=== PATIENT | female | born 1980 | race Caucasian/White ===

== ENCOUNTER 2017-01-03 22:44 | Inpatient (IN) | payer MEDICAID ==
[~2017-01-03] VITALS: Ht 160 cm; Wt 61.3 kg
[2017-01-03 22:51] VITALS: Ht 160 cm; Wt 61.3 kg
--- NOTE | 2017-01-03 23:35 | RADRPT ---
PROCEDURE: US OB biophysical profile. CLINICAL INDICATION: labor TECHNIQUE: Multiple sonographic images of the pelvis were obtained. The images were reviewed on a PACS workstation. COMPARISON: No pertinent prior examinations were submitted for comparison. FINDINGS: There is a single viable intrauterine gestation. Cardiac activity is present with 131 beats per min [place]. There is a vertex presentation. The placenta is fundal, grade II in appearance. There is a normal amount of amniotic fluid with an NORA = 11.9 cm. Biophysical profile: movement 2/2 tone 2/2. breathing 2/2 NORA 2/2 Total 10/16 IMPRESSION: Normal biophysical profile. RPTAT: HIKT . .Bruce Hinojosa MD, MD Date Time Electronically viewed and signed by .Bruce Hinojosa MD, MD on 01/03/2017 23:35 .T/
--- NOTE | 2017-01-03 23:35 | RADRPT ---
PROCEDURE: US OB biophysical profile. CLINICAL INDICATION: labor TECHNIQUE: Multiple sonographic images of the pelvis were obtained. The images were reviewed on a PACS workstation. COMPARISON: No pertinent prior examinations were submitted for comparison. FINDINGS: There is a single viable intrauterine gestation. Cardiac activity is present with 131 beats per min [place]. There is a vertex presentation. The placenta is fundal, grade II in appearance. There is a normal amount of amniotic fluid with an NORA = 11.9 cm. Biophysical profile: movement 2/2 tone 2/2. breathing 2/2 NORA 2/2 Total 10/16 IMPRESSION: Normal biophysical profile. RPTAT: HIKT . .Bruce Hinojosa MD, MD Date Time Electronically viewed and signed by .Bruce Hinojosa MD, MD on 01/03/2017 23:35 .T/
--- NOTE | 2017-01-03 23:35 | RADRPT ---
PROCEDURE: US OB biophysical profile. CLINICAL INDICATION: labor TECHNIQUE: Multiple sonographic images of the pelvis were obtained. The images were reviewed on a PACS workstation. COMPARISON: No pertinent prior examinations were submitted for comparison. FINDINGS: There is a single viable intrauterine gestation. Cardiac activity is present with 131 beats per min [place]. There is a vertex presentation. The placenta is fundal, grade II in appearance. There is a normal amount of amniotic fluid with an NORA = 11.9 cm. Biophysical profile: movement 2/2 tone 2/2. breathing 2/2 NORA 2/2 Total 10/16 IMPRESSION: Normal biophysical profile. RPTAT: HIKT . .Bruce Hinojosa MD, MD Date Time Electronically viewed and signed by .Bruce Hinojosa MD, MD on 01/03/2017 23:35 .T/
--- NOTE | 2017-01-03 23:36 | RADRPT ---
PROCEDURE: Obstetrical ultrasound greater than 14 weeks CLINICAL INDICATION: labor. Estimated weight TECHNIQUE: Real time sonographic imaging of the gravid uterus is performed transabdominally and mu ltiple static brock scale and Doppler images are submitted for review as are measurements. The image s are reviewed on the PACS. COMPARISON: No relevant exams are available FINDINGS: There is a single living intrauterine gestation in cephalic presentation. The heart beat is estimated at 150 bpm. The measurements are as follows: BPD:9.01 cm HC:33.05 cm AC:34.71 cm FL:7.20 cm Estimated gestational age is 37 weeks 3 days. The estimated date of delivery is 01/21/2017. The estimated weight is 3327 grams. Placenta is fundal and grade2. There is no evidence of placenta previa or abruption. RPTAT:HJJR IMPRESSION: 1. Single viable intrauterine gestation in cephalic presentation estimated at 37 weeks 3 days with t he estimated date of delivery 01/21/2017. 2. Estimated weight 3327 grams, the 53rd percentile. Physician Daphney Date Time Electronically viewed and signed by Physician Daphney on 01/03/2017 23:36 /
[2017-01-04] MEDS ORDERED: METHYLERGONOVINE 0.2 MG INJ IM PRN (02:00)
[2017-01-04] MEDS ORDERED: BUTORPHANOL 2 MG INJ IV PRN (02:00)
[2017-01-04] MEDS ORDERED: LIDOCAINE 1% (MPF) 30 ML INJ INJ PRN (02:00)
[2017-01-04] MEDS ORDERED: OXYTOCIN 30 UNITS/LR 500 ML IV SCH ×3 (02:00→08:00)
[2017-01-04] MEDS ORDERED: OXYTOCIN 30 UNITS/LR 500 ML IV PRN (02:00)
[2017-01-04] MEDS ORDERED: MISOPROSTOL 200 MCG TAB PR PRN (02:00)
[2017-01-04] MEDS ORDERED: IBUPROFEN 600 MG TAB PO PRN (02:00)
[2017-01-04] MEDS ORDERED: MINERAL OIL LIGHT 10 ML VIAL TOP PRN (02:00)
[2017-01-04] MEDS ORDERED: CARBOPROST 250 MCG INJ IM PRN (02:00)
[2017-01-04] MEDS: LACTATED RINGER'S 1,000 ML IV SCH ×3 (02:23→20:18)
[2017-01-04 03:21] VITALS: BP 121/86; PULSE 118; RESP 18
--- NOTE | 2017-01-04 03:21 | TRIAGE ---
OB Triage Datetime Report Generated by CPN: 01/04/2017 03:20 Datetime: 01/04/2017 23:00 Stage of : OB Triage Datetime: 01/04/2017 03:00 Stage of : OB Triage Labor Evaluation Frequency: 2-6 Monitor Mode: External Duration (sec)2399: 70-120 Quality: Mild Pattern: Normal: <= 5 Contractions in 10 Minutes Resting Tone [place]: Relaxed Heart Rate FHR Baseline Rate: 140 Monitor Mode: External US Variability: Moderate 6-25 bpm Accelerations: 15X15 Decelerations: None Category: Category I Pain Assessment Pain Scale: 3 Pain Presence: Intermittent Pain Type: Cramping Pain Location: Abdomen Pain Goal: 3 Pain Relief Measures: Comfort Measures Datetime: 01/04/2017 02:20 Assessment Type: Ongoing Assessment Datetime: 01/04/2017 02:00 Stage of : OB Triage Labor Evaluation Frequency: 3-10 Monitor Mode: External Duration (sec)2399: 70-120 Quality: Mild Pattern: Normal: <= 5 Contractions in 10 Minutes Resting Tone [place]: Relaxed Heart Rate FHR Baseline Rate: 140 Monitor Mode: External US Variability: Moderate 6-25 bpm Accelerations: 15X15 Decelerations: None Category: Category I Pain Assessment Pain Scale: 3 Pain Presence: Intermittent Pain Type: Cramping Pain Location: Abdomen Pain Goal: 3 Pain Relief Measures: Comfort Measures Datetime: 01/04/2017 01:00 Stage of : OB Triage Labor Evaluation Frequency: IRREG Monitor Mode: External Duration (sec)2399: 70-120 Quality: Mild Pattern: Normal: <= 5 Contractions in 10 Minutes Resting Tone [place]: Relaxed Heart Rate FHR Baseline Rate: 140 Monitor Mode: External US Variability: Moderate 6-25 bpm Accelerations: 15X15 Decelerations: Variable Category: Category II Datetime: 01/04/2017 00:00 Stage of : OB Triage Labor Evaluation Frequency: [place]CCASS Monitor Mode: External Duration (sec)2399: 80 Quality: Mild Pattern: Normal: <= 5 Contractions in 10 Minutes Resting Tone [place]: Relaxed Heart Rate FHR Baseline Rate: 140 Monitor Mode: External US Variability: Moderate 6-25 bpm Accelerations: 15X15 Decelerations: Variable Category: Category II Datetime: 01/03/2017 23:28 Vaginal Exam Dilatation (cms): 0.0 Effacement (%): 0 Station: -3 Exam By: ALESSANDRO Cervix, Position: Posterior Datetime: 01/03/2017 23:07 Time of Arrival: 01/03/2017 22:32 EGA: 38.2 Arrived By: Wheelchair Arrived From: Home Chief Complaint: WENT TO CLINIC TODAY, HAS PAPERS TO DO PIH , BPP AND EFW, ADDITIONAL COMPLAINS OD ABD. TIGTHENING Movement: Present Contractions: Occasional Rupture of Membranes: Denies Vaginal Discharge: Denies Recent Sexual Intercouse: Denies Time Provider Notified: 01/03/2017 23:25 Provider Notified: JAMES Initial Plan: VS, EFM, PIH LABS, EFW/BPP Datetime: 01/03/2017 23:00 Stage of : OB Triage Assessment Type: Triage Maternal Assessment Level of Consciousness: Fully Conscious DTR's/Clonus: DTRs 2+; No Clonus Headache: Denies Blurred Vision: No Respiratory Effort: Unlabored; Regular Rhythm; Equal Expansion Nausea/Vomiting: Denies RUQ Epigastric Pain: Denies Lower Extremities Edema: None Upper Extremities Edema: None Facial Edema: None Temperature Route: Oral Fall Risk Assessment History of Falling: (0) No Secondary Diagnosis: (0) No Ambulatory Aid: (0) Bedrest/Nurse Assist IV Therapy: (0) No Gait: (0) Normal/Bedrest/Immobile Mental Status: (0) Oriented to Own Ability Fall Score: 0 Fall Risk Score Definition: No Risk: No action required
--- NOTE | 2017-01-04 07:53 | HP ---
Date/Time of Note Date/Time of Note DATE: 01/04/17 TIME: 07:38 OB - History Hx of Present Free Text/Dictation 36y.o at 38w3d ,sent from clinic for elavated B.P for further evaluation.. B.P was checked in multiple occasions which is in normal range ,but urine protein ++ and EFM revealed x2 mild variable decelerations and uterine contractions q4- 7min apart admitted for augmentation of labor . VE closed /long /-3 Chief Complaint: monitor for high blood pressure Estimated Due Date: Jan 15, 2017 : 5 Para: 4 Spontaneous : 0 Therapeutic : 0 Care: Other Ultrasounds: Other Obstetrical Complications: None Medical Complications: None Past Family/Social History * Past Medical, Surgical, Family and Obstetric Histories reviewed from chart. Blood Type: O+ GBS Status: Negative HBsAG: Negative OB Admission Exam Vital Signs Vital Signs Vital Signs Date Time Temp Pulse Resp B/P Pulse Ox O2 Delivery O2 Flow Rate FiO2 01/04/17 03:21 98.2 118 18 121/86 Room Air Physical Exam HEENT: WNL Heart: Rhythm Normal Lungs: Clear, Equal Abdomen: WNL Extremities: Normal Reflexes: Normal Cervical Dilatation: None Effacement: 0% Station: -3 Membranes: Intact Amniotic Fluid: Unevaluable Heart Rate: 130's Accelerations: Accelerations Present Decelerations: No Decelerations Varibility: Moderate Contractions on Admission: 6-10 Minutes Apart Intensity: Mild Last 72 hours Lab Results CBC & BMP 01/03/17 23:37 Liver Function Test 01/03/17 23:37 Alanine Aminotransferase (ALT/SGPT) 32 Albumin 3.5 Alkaline Phosphatase 295 H Aspartate Amino Transf (AST/SGOT) 24 Direct Bilirubin 0.00 Total Protein 7.2 OB Assessment/Plan Other Assessment: IUP 38w3d R/O PIH in latent phase Induction Method: per Pitocin Protocol ASHLEE RAMIREZ MD Jan 04, 2017 07:49
[2017-01-04] MEDS ORDERED: LACTATED RINGER'S 1,000 ML IV PRN (09:00)
[2017-01-04] MEDS ORDERED: MAGNESIUM SULFATE 4 GM/100 ML 100 ML IV SCH (09:30)
[2017-01-04] MEDS ORDERED: DINOPROSTONE 10 MG VAG SUPP VAG ONE (09:30)
[2017-01-04] MEDS: MAGNESIUM SULFATE 20 GM/500 ML 500 ML IV SCH ×2 (09:59→20:19)
[2017-01-04] MEDS ORDERED: FENTAnyl 2MCG/ML-ROPIV 0.2% 100 ML ONE (13:07)
[2017-01-04] MEDS ORDERED: NALOXONE (0.4 MG/ML) INJ IV PRN (14:30)
[2017-01-04] MEDS: FENTAnyl 2MCG/ML-ROPIV 0.2% 100 ML BAG EPI SCH (21:22)
[2017-01-04] MEDS ORDERED: DEXTROSE 5%-LR 1,000 ML IV SCH (23:30)
[2017-01-05] VITALS (9 sets, daily range): BP systolic 111–139; BP diastolic 63–87; PULSE 62–75; RESP 17–19
[2017-01-05] MEDS: FENTAnyl 2MCG/ML-ROPIV 0.2% 100 ML BAG EPI SCH (05:16)
[2017-01-05] MEDS: MAGNESIUM SULFATE 20 GM/500 ML 500 ML IV SCH (06:17)
--- NOTE | 2017-01-05 11:01 | LDN ---
Date/Time of Note Date/Time of Note DATE: 01/05/17 TIME: 10:56 Delivery Summary Normal spontaneous vaginal delivery of a baby girl from OA position shoulders delivered without difficulty rest of the baby's body followed cord clamped after stopped pulsation, placenta spontaneous expulsion inspected complete, estimated blood loss 300 to 350 cc, patient sustained a small first-degree perineal repaired 3-0 chromic Weeks of Gestation 38 weeks 3 days Placenta Delivered: Spontaneously Meconium: none Episiotomy: No Perineal laceration: 1 Laceration repair: First-degree perineal laceration repaired with 3-0 chromic catgut Anesthesia type: Epidural Estimated blood loss: 350 Sponge & Needle done & correct: Yes All needle counts correct: Yes Any foreign bodies felt in the: No Problems: Infant Delivery Information Sex Sex: female Apgars 1 Minute: 9 5 Minute: 9 Suctioning Nose & mouth suctioned at zia: Yes Umbilical Cord Umbilical cord with: 3 Vessels Cord presentations: no nuchal cord Cord Blood was obtained: Yes YESSY MACHADO MD Jan 05, 2017 11:01
[2017-01-05] MEDS: LACTATED RINGER'S 1,000 ML IV* SCH ×2 (14:17→22:17)
[2017-01-05] MEDS ORDERED: MISOPROSTOL 200 MCG TAB PR PRN (14:30)
[2017-01-05] MEDS ORDERED: HYDROCODONE/APAP (5/325) TAB PO PRN ×2 (14:30)
[2017-01-05] MEDS ORDERED: ACETAMINOPHEN 325 MG TAB PO PRN (14:30)
[2017-01-05] MEDS ORDERED: CARBOPROST 250 MCG INJ IM PRN (14:30)
[2017-01-05] MEDS ORDERED: ONDANSETRON 4 MG INJ IV PRN (14:30)
[2017-01-05] MEDS ORDERED: BENZOCAINE 20% 56 ML SPRAY TOP PRN (14:30)
[2017-01-05] MEDS ORDERED: LANOLIN 7 GM TUBE TOP PRN (14:30)
[2017-01-05] MEDS ORDERED: METHYLERGONOVINE 0.2 MG INJ IM PRN (14:30)
[2017-01-05] MEDS ORDERED: WITCH HAZEL/GLYCERIN PAD PR PRN (14:30)
[2017-01-05] MEDS ORDERED: OXYCODONE/ASPIRIN (4.88/325) TAB PO PRN ×2 (14:30)
[2017-01-05] MEDS ORDERED: DIBUCAINE 1% 30 GM OINT PR PRN (14:30)
[2017-01-05] MEDS ORDERED: OXYTOCIN 30 UNITS/LR 500 ML IV PRN (14:30)
[2017-01-05] MEDS: OXYTOCIN 30 UNITS/LR 500 ML IV SCH ×2 (15:55→22:23)
[2017-01-05] MEDS ORDERED: MAGNESIUM SULFATE 20 GM/500 ML 500 ML IV SCH (16:00)
[2017-01-05] MEDS: IBUPROFEN 600 MG TAB PO SCH ×2 (17:34→23:27)
[2017-01-05] MEDS: SENNA/DOCUSATE NA (8.6MG/50MG) TAB PO SCH (21:22)
[2017-01-06] VITALS: BP 129/79; PULSE 71; RESP 19
[2017-01-06 04:00] VITALS: BP 106/67; PULSE 73; RESP 18
[2017-01-06] MEDS: IBUPROFEN 600 MG TAB PO SCH ×4 (05:40→23:44)
[2017-01-06] MEDS: LACTATED RINGER'S 1,000 ML IV* SCH ×3 (06:01→22:17)
[2017-01-06 08:00] VITALS: BP 111/63; PULSE 65; RESP 17
[2017-01-06] MEDS ORDERED: INFLUENZA VIRUS VACCINE 0.5 ML (DISPENSING) IM* ONE (09:00)
[2017-01-06] MEDS: SENNA/DOCUSATE NA (8.6MG/50MG) TAB PO SCH ×2 (09:42→21:00)
--- NOTE | 2017-01-06 12:16 | QN ---
Documentation Comment ppd1 pt doing wll vss examwnl a/p ppd1 continue care MAURICIO CESAR MD Jan 06, 2017 12:16
--- NOTE | 2017-01-06 12:16 | QN ---
Documentation Comment ppd1 pt doing wll vss examwnl a/p ppd1 continue care MAURICIO CESAR MD Jan 06, 2017 12:16
--- NOTE | 2017-01-06 12:16 | QN ---
Documentation Comment ppd1 pt doing wll vss examwnl a/p ppd1 continue care MAURICIO CESAR MD Jan 06, 2017 12:16
[2017-01-06 16:00] VITALS: BP 109/60; PULSE 79; RESP 16
[2017-01-06 20:20] VITALS: BP 112/72; PULSE 75; RESP 18
[2017-01-07 04:30] VITALS: BP 113/71; PULSE 68; RESP 20
[2017-01-07] MEDS: IBUPROFEN 600 MG TAB PO SCH ×2 (05:48→11:49)
[2017-01-07] MEDS: LACTATED RINGER'S 1,000 ML IV* SCH (06:08)
[2017-01-07 08:15] VITALS: BP 107/64; PULSE 72; RESP 18
[2017-01-07] MEDS ORDERED: MEASLES,MUMPS,RUBELLA VACCINE INJ SC* ONE (09:00)
[2017-01-07] MEDS: SENNA/DOCUSATE NA (8.6MG/50MG) TAB PO SCH (09:26)
--- NOTE | 2017-01-07 09:53 | DS ---
Date/Time of Note Date/Time of Note DATE: 01/07/17 TIME: 09:52 Discharge Summary Admission/Discharge Info Admit Date/Time Jan 04, 2017 at 01:30 Discharge Date/Time January 07, 2017 at 11 AM Discharge Diagnosis Post normal vaginal delivery day 2 Patient Condition: Good Procedures Normal vaginal delivery Hx of Present Illness Term in labor Hospital Course Satisfactory uneventful Follow-up Plan instructions given recommended to make appointment to be seen at the clinic in 1 week Primary Care Provider Not On Staff Doctor Time spent on discharge: < 30 minutes YESSY MACHADO MD Jan 07, 2017 09:53
== END 2017-01-07 13:55 | disposition home or self-care (01) | DRG 775 ==
LOC: OBT 22:44 → L-D 22:48 → OBT 01-04 00:09 → L-D 01-04 01:30 → PP1 01-05 14:16
PROVIDERS: ADMIT Obstetrics & Gynecology; ATTEND Obstetrics & Gynecology
PROC: 10E0XZZ Delivery of Products of Conception, External Approach (ICD-10-PCS; principal; 2017-01-04)
PROC: 0HQ9XZZ Repair Perineum Skin, External Approach (ICD-10-PCS; 2017-01-04)
PROC: 3E0P3VZ Introduction of Hormone into Female Reproductive, Percutaneous Approach (ICD-10-PCS; 2017-01-04)
DX: O70.0 First degree perineal laceration during delivery (principal); Z37.0 Single live birth; O14.94 Unspecified pre-eclampsia, complicating childbirth; Z3A.38 38 weeks gestation of pregnancy
CPT/HCPCS: 62319; 76815; 76818; 80053; 81001; 83735; 84560; 85025; 85610; 85730; 86592; 86850; 86900; 86901; 86920; 87340; 90686; G0463; J2590; J3010; J3475; J7120; J7121